=== PATIENT | male | born 1995 | race African-American/Black ===

== ENCOUNTER 2017-12-24 21:11 | Emergency (ER) | payer MEDICAID ==
[~2017-12-24] VITALS: Ht 177.8 cm; Wt 73.0 kg
[2017-12-25 01:00] VITALS: BP 118/74
[2017-12-25] MEDS ORDERED: CEPHALEXIN 500MG CAPSULE PO ONE (01:15)
[2017-12-25] MEDS ORDERED: SULFAMETHOXAZOLE/TRIMETHOPRIM 800/160MG TABLET PO ONE (01:15)
== END 2017-12-25 02:05 | disposition home or self-care (01) ==
LOC: ER 22:03
DX: L03.221 Cellulitis of neck (principal); S10.86XA Insect bite of other specified part of neck, initial encounter; W57.XXXA Bitten or stung by nonvenomous insect and other nonvenomous arthropods, initial encounter; Y93.9 Activity, unspecified; Y92.9 Unspecified place or not applicable
CPT/HCPCS: 99283

== ENCOUNTER 2024-04-16 13:05 | Emergency (ER) | payer MEDICAID ==
[~2024-04-16] VITALS: Ht 177.8 cm; Wt 77.1 kg
[2024-04-16 13:10] VITALS: O2SAT 100
[2024-04-16 13:18] VITALS: BP 144/84; PULSE 90; RESP 16; TEMP 98.2; O2SAT 100
[2024-04-16] MEDS ORDERED: DIPH25TA24 MT (15:36)
[2024-04-16] MEDS ORDERED: P50 MT (15:37)
[2024-04-16] MEDS ORDERED: PREDNISONE 20MG TABLET PO ONE (15:45)
[2024-04-16] MEDS ORDERED: DIPHENHYDRAMINE 50MG/ML VIAL IM ONE (15:45)
== END 2024-04-16 15:46 | disposition home or self-care (01) ==
LOC: ER 13:05
DX: L50.9 Urticaria, unspecified (principal); F12.10 Cannabis abuse, uncomplicated
CPT/HCPCS: 99283

== ENCOUNTER → 2024-08-03 | Emergency (ER) | payer MEDICAID, OTHER ==
[~2024-08-03] VITALS: Ht 177.8 cm; Wt 77.0 kg
[~2024-08-03] MED LIST: DIPH25TA24 MT; P50 MT
[2024-08-03 17:24] VITALS: O2SAT 95
[2024-08-03 17:50] VITALS: BP 132/83; PULSE 82; RESP 14; TEMP 36.2; O2SAT 100
== END ==
LOC: ER 17:20
DX: R05.9 Cough, unspecified (principal); J02.9 Acute pharyngitis, unspecified; R09.89 Other specified symptoms and signs involving the circulatory and respiratory systems; Z53.21 Procedure and treatment not carried out due to patient leaving prior to being seen by health care provider

== ENCOUNTER 2025-05-13 13:00 | Emergency (ER) | payer SELFPAY ==
[~2025-05-13] VITALS: Ht 172.7 cm; Wt 75.0 kg
[2025-05-13 13:13] VITALS: TEMP 36.7; O2SAT 99
[2025-05-13] MEDS ORDERED: BO1 TP (14:11)
[2025-05-13] MEDS ORDERED: CEPH500C2 MT (14:11)
[2025-05-13 15:10] VITALS: BP 126/85; PULSE 84; RESP 14; O2SAT 100
== END 2025-05-13 15:12 | disposition home or self-care (01) ==
LOC: ER 13:00
DX: L02.01 Cutaneous abscess of face (principal); F12.90 Cannabis use, unspecified, uncomplicated; Z79.899 Other long term (current) drug therapy
CPT/HCPCS: 99283